=== PATIENT | female | born 1965 | race African-American/Black ===

== ENCOUNTER 2017-11-24 22:02 | Emergency (ER) | payer MEDICARE, MEDICAID ==
[~2017-11-24] VITALS: Ht 172.7 cm; Wt 100.0 kg
[~2017-11-24 22:02] MED LIST: CLEO300C2 PO; Z.0.NO CURRENT MEDS
[2017-11-24 22:18] VITALS: BP 223/104; PULSE 118; RESP 16; TEMP 98.7; O2SAT 100
[2017-11-24] MEDS ORDERED: SODIUM CHLOR 0.9% 1000 ML INJ 1,000 ML IV ONE (23:00)
[2017-11-24] MEDS ORDERED: KETOROLAC TROMETHAMINE 30 MG/ML (IVP) VIAL IV PUSH ONE (23:00)
[2017-11-24] MEDS ORDERED: cloNIDine HCL 0.2 MG TAB PO ONE (23:00)
--- NOTE | 2017-11-24 23:03 | PD ---
HPI Chief Complaint: Bite or Sting Time Seen by Provider: 22:45 Travel History International Travel<30 days: No Contact w/Intl Traveler<30days: No Traveled to known affect area: No History of Present Illness HPI 52yo F with PMH of HTN noncompliant with clonidine 0.2mg TID, here with c/o left arm pain for 5 days. Said it started off like a bite but she has been cleaning it with peroxide and using topical antibiotic ointments. Denies any fever but said her left arm feels arm. Denies any trauma, chest pain, sob, n/v , abdominal pain, focal weakness or numbness. Denies burning herself. PFSH Past Medical History Hx Anticoagulant Therapy: No Arthritis: No Asthma: No Blood Disorders: No Anxiety: No Depression: No Heart Rhythm Problems: No Cancer: No Cardiovascular Problems: Yes (HIGH BP) High Cholesterol: No Chemotherapy: No Chest Pain: Yes Congestive Heart Failure: No COPD: No Diabetes: No Endocrine: No Gastrointestinal Disorders: Yes GERD: No Genitourinary: Yes Hepatitis: No Hiatal Hernia: No Hypertension: Yes Immune Disorder: No Kidney Stones: No Musculoskeletal: Yes Neurologic: No Psychiatric: No Respiratory: No Immunizations Current: Yes Myocardial Infarction: No Radiation Therapy: No Renal Failure: No Sleep Apnea: No Thyroid Disease: No Ulcer: No Tetanus Vaccination: > 5 Years Influenza Vaccination: No ?: Not Menopausal: Yes Past Surgical History Abdominal Surgery: No AICD: No Cardiac Surgery: No Ear Surgery: No Endocrine Surgery: No Eye Surgery: No Genitourinary Surgery: No Gynecologic Surgery: Yes (OOPHORECTOMY) Hysterectomy: No Joint Replacement: No Oral Surgery: No Pacemaker: No Thoracic Surgery: No Social History Alcohol Use: Yes (OCC) Tobacco Use: Yes Substance Use: No Allergies-Medications (Allergen,Severity, Reaction): Coded Allergies: amoxicillin (Unverified Allergy, Mild, 02/09/17) latex (Unverified Allergy, Mild, Rash, 02/09/17) Reported Meds & Prescriptions Reported Meds & Active Scripts Active Bactrim DS (Sulfamethoxazole-Trimethoprim) 800-160 Mg Tab 1 Tab PO BID Cleocin (Clindamycin HCl) 300 Mg Cap 300 Mg PO Q6 Reported No Current Meds (Miscellaneous Medication) Misc Review of Systems Except as stated in HPI: all other systems reviewed are Neg Physical Exam Narrative GENERAL: 52yo F not in distress. SKIN: Focused skin assessment warm/dry. HEAD: Atraumatic. Normocephalic. EYES: Pupils equal and round. No scleral icterus. No injection or drainage. ENT: No nasal bleeding or discharge. Mucous membranes pink and moist. NECK: Trachea midline. No JVD. CARDIOVASCULAR: Regular rate and rhythm. No murmur appreciated. RESPIRATORY: No accessory muscle use. Clear to auscultation. Breath sounds equal bilaterally. GASTROINTESTINAL: Abdomen soft, non-tender, nondistended. MUSCULOSKELETAL: LUE: +9cm by 7cm wound that is pale which looks like a burn or that it was the result of peroxide with surrounding erythema. No fluctuance. + Warmth to touch. Distal pulses intact. Sensation intact. FROM in left shoulder and elbow. Pt has no pain in her joint. NEUROLOGICAL: Awake and alert. No obvious cranial nerve deficits. Motor grossly within normal limits. Normal speech. PSYCHIATRIC: Appropriate mood and affect; insight and judgment normal. Data Data Last Documented VS Vital Signs Date Time Temp Pulse Resp B/P (MAP) Pulse Ox O2 Delivery O2 Flow Rate FiO2 11/25/17 00:38 11/25/17 00:13 103 20 100 Room Air 11/24/17 22:18 98.7 Orders Orders Sodium Chlor 0.9% 1000 Ml Inj (Ns 1000 M (11/24/17 23:00) Clonidine (Catapres) (11/24/17 23:00) Ketorolac Inj (Toradol Inj) (11/24/17 23:00) Sulfamet-Trimeth Ds 800-160 Mg (Bactrim (11/24/17 23:15) MDM Medical Decision Making Medical Screen Exam Complete: Yes Emergency Medical Condition: Yes Differential Diagnosis Cellulitis vs. burn Narrative Course 52yo F with left arm pain for 5 days. Pt has elevated blood pressure and is noncompliant with her clonidine. Said she takes clonidine 0.2mg TID but did not take any today. HR was also elevated. Pt is refusing any blood work or IV. Pt may be septic but unable to do further work up since pt refused. Pt given bactrim. She is still mildly tachycardic but is well appearing. Went to patient's room and she is no longer there. Pt has absconded from the ED. Diagnosis Primary Impression: Cellulitis Qualified Codes: L03.114 - Cellulitis of left upper limb Patient Instructions: General Instructions Departure Forms: Tests/Procedures Additional Instructions: Please follow up with your primary care physician in 2-3 days. Return to the ED if symptoms worsen. Med/Other Pt SpecificInfo: Prescription(s) given Scripts Sulfamethoxazole-Trimethoprim (Bactrim DS) 800-160 Mg Tab 1 TAB PO BID for Infection, #14 TAB 0 Refills Prov: Ellen Kruger DO 11/25/17 Disposition: 01 DISCHARGE HOME Condition: Stable Ellen Kruger DO November 24, 2017 23:02
[2017-11-24] MEDS ORDERED: SULFAMETHOXAZOLE-TRIMETHOPRIM DS 800-160 MG TAB PO ONE (23:15)
[2017-11-25 00:13] VITALS: BP 185/98; PULSE 103; RESP 20; O2SAT 100
[2017-11-25] MEDS ORDERED: BACT800T5 PO (00:24)
== END 2017-11-25 02:54 | disposition left against medical advice (07) ==
LOC: NEPD 22:02
DX: L03.114 Cellulitis of left upper limb (principal); Z72.0 Tobacco use
CPT/HCPCS: 99283